=== PATIENT | female | born 1995 | race Caucasian/White ===

== ENCOUNTER 2019-07-24 09:32 | Emergency (ER) | payer MEDICAID ==
[~2019-07-24] VITALS: Ht 162.6 cm; Wt 65.9 kg
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
[2019-07-24 11:00] VITALS: BP 149/81
[2019-07-24] MEDS ORDERED: FLUORESCEIN OPHTH TEST STRIP. OU ONE (11:15)
[2019-07-24] MEDS ORDERED: ERYTHROMYCIN 0.5% OPHTH OINTMENT 1GM TUBE. OU ONE (11:15)
[2019-07-24] MEDS ORDERED: TETRACAINE 0.5% OPHTH SOLUTION 4ML BOTTLE. OU ONE (11:15)
[2019-07-24 11:57] LABS: BILIRUBIN,URINE NEGATIVE (NEG); CLARITY,URINE CLEAR; COLOR,URINE YELLOW; NITRITE,URINE POSITIVE (NEG); PH,URINE 7.5; PROTEIN,URINE NEGATIVE (NEG-TRACE); UROBILINOGEN,URINE 0.2 mg/dL (0.2 mg/dL)
[2019-07-24 12:08] LABS: BACTERIA,URINE MANY /HPF (0-FEW); RBC,URINE OCC /HPF (0-2); SQUAMOUS EPITHELIAL CELL,UR MOD /LPF
[2019-07-24 12:19] LABS: CALCIUM 9.6 mg/dL (8.5-10.1); CREATININE 0.6 mg/dL (0.6-1.0); GFR 123.9; POTASSIUM 3.9 mmol/L (3.5-5.1)
[2019-07-24 12:48] LABS: PREG TEST PT QUAL NEGATIVE (NEG)
== END 2019-07-24 12:46 | disposition left against medical advice (07) ==
LOC: ER 09:32
DX: T65.91XA Toxic effect of unspecified substance, accidental (unintentional), initial encounter (principal); H10.213 Acute toxic conjunctivitis, bilateral; R10.13 Epigastric pain; R11.0 Nausea; J45.909 Unspecified asthma, uncomplicated; Z88.8 Allergy status to other drugs, medicaments and biological substances; Y92.89 Other specified places as the place of occurrence of the external cause
CPT/HCPCS: 36415; 80048; 81001; 83930; 84703; 87086; 99283